=== PATIENT | female | born 1955 | race Caucasian/White ===

== ENCOUNTER → 2019-09-20 | Outpatient (CLI) | payer OTHER ==
[~2019-09-20] MED LIST: AMOXICILLIN500 MG PO; LEVOTHYROXIN0.112 MG PO; LYRICA150 MG PO; PRILOSEC20 MG PO; TORADOL10 MG PO; VICODIN ES 7501 TAB PO
== END | disposition home or self-care (01) ==
LOC: RESCLI 13:13
DX: J18.9 Pneumonia, unspecified organism (principal); B34.9 Viral infection, unspecified; G61.81 Chronic inflammatory demyelinating polyneuritis

== ENCOUNTER → 2021-03-23 | Outpatient (CLI) | payer OTHER | END | disposition home or self-care (01) | LOC: COVID19 15:31 | PROVIDERS: ATTEND Family Medicine | DX: Z11.52 Encounter for screening for COVID-19 (principal) ==

== ENCOUNTER 2023-02-06 01:53 | Emergency (ER) | payer MEDICARE ==
[~2023-02-06] VITALS: Ht 167.6 cm; Wt 99.8 kg
[2023-02-06 02:23] LABS: BASO % 0.5 % (0.0-1.0); EOS # 0.2 10*3/uL (0.0-0.4); EOS % 1.9 % (1.0-4.0); HEMATOCRIT 29.1 % (37.0-47.0); LYMPH # 1.4 10*3/uL (1.3-4.4); LYMPH % 15.7 % (27.0-41.0); MEAN CORPUSCULAR HGB 31.9 pg (27.0-31.0); MEAN CORPUSCULAR HGB CONC 31.6 g/dl (33.0-37.0); MEAN PLATELET VOLUME 9.3 fl (9.6-12.3); MONO # 0.5 10*3/uL (0.1-1.0); MONO % 5.8 % (3.0-9.0); NEUT # 6.5 10*3/uL (2.3-7.9); NEUT % 73.7 % (47.0-73.0); NUCLEATED RED BLOOD CELL 0.3 % (0.0-0.0); PLATELET COUNT AUTOMATED 328 10*3/uL (130-400); RED BLOOD COUNT 2.88 10*6/uL (4.10-5.10); RED CELL DISTRI WIDTH 16.1 % (0-14.5); WHITE BLOOD COUNT 8.8 10*3/uL (4.8-10.8)
[2023-02-06 02:44] LABS: ACT PARTIAL THROMBO TIME 24.5 SECONDS (20.0-32.1); INTERNATIONAL NORM RATIO 0.9 (2.0-3.5)
[2023-02-06 03:05] LABS: ALKALINE PHOSPHATASE 62 U/L (46-116); BUN 12 mg/dl (9-23); CHLORIDE 106 mmol/L (98-107); LIPASE 25 U/L (12-53); POTASSIUM 3.7 mmol/L (3.4-5.1); SGPT/ALT 13 U/L (10-49); TOTAL PROTEIN 5.9 gm/dL (6.0-8.0)
[2023-02-06 03:50] VITALS: BP 127/87
== END 2023-02-06 06:32 ==
LOC: ED 01:53
PROVIDERS: Internal Medicine
DX: R07.89 Other chest pain (principal); K21.9 Gastro-esophageal reflux disease without esophagitis; E03.9 Hypothyroidism, unspecified; Z86.73 Personal history of transient ischemic attack (TIA), and cerebral infarction without residual deficits

== ENCOUNTER 2023-12-25 12:14 | Emergency (ER) | payer MEDICARE, MEDICAID ==
[~2023-12-25] VITALS: Wt 125.2 kg
[2023-12-25] MEDS ORDERED: Naloxone Hydrochloride 2 MG/2 ML SYR IV ONE (12:20)
[2023-12-25 12:47] VITALS: BP 115/88
[2023-12-25] MEDS ORDERED: Midazolam Hydrochloride 2 MG/2 ML VIAL IV ONE ×2 (12:50→15:00)
[2023-12-25 12:54] LABS: BASO % 0.2 % (0.0-1.0); EOS % 0.5 % (1.0-4.0); HEMATOCRIT 28.4 % (37.0-47.0); LYMPH # 1.6 10*3/uL (1.3-4.4); MEAN CELL VOLUME 97.9 fl (81.0-99.0); MEAN CORPUSCULAR HGB 29.7 pg (27.0-31.0); MEAN CORPUSCULAR HGB CONC 30.3 g/dl (33.0-37.0); MEAN PLATELET VOLUME 12.1 fl (9.6-12.3); MONO # 0.3 10*3/uL (0.1-1.0); MONO % 4.7 % (3.0-9.0); NEUT # 4.6 10*3/uL (2.3-7.9); NEUT % 70.1 % (47.0-73.0); PLATELET COUNT AUTOMATED 51 10*3/uL (130-400); RED CELL DISTRI WIDTH 16.7 % (0-14.5); WHITE BLOOD COUNT 6.5 10*3/uL (4.8-10.8)
[2023-12-25 13:06] LABS: ACT PARTIAL THROMBO TIME 21.9 SECONDS (20.0-32.1)
[2023-12-25 13:15] LABS: ALKALINE PHOSPHATASE 66 U/L (46-116); BUN 22 mg/dl (9-23); CHLORIDE 112 mmol/L (98-107); CPK 42 U/L (34-171); ETHYL ALCOHOL < 3.0 mg/dl (<3); POTASSIUM 4.5 mmol/L (3.4-5.1); SGPT/ALT 26 U/L (5-49); TOTAL PROTEIN 5.3 gm/dL (6.0-8.0)
[2023-12-25] MEDS ORDERED: SODIUM CHLORIDE 0.9% 1,000 ML IV SCH (13:30)
[2023-12-25] MEDS ORDERED: DIAZEPAM 10 MG/2 ML SYR IV ONE (13:40)
[2023-12-25] MEDS ORDERED: AZITHROMYCIN 250 ML IV ONE (14:55)
[2023-12-25] MEDS ORDERED: Ceftriaxone Sodium 1 GM/10 ML SYR IV ONE (14:55)
[2023-12-25] MEDS ORDERED: IOHEXOL 350 MG/ML 100 ML VIAL IV ONE (15:30)
[2023-12-25] MEDS ORDERED: SODIUM CHLORIDE 0.9% 100 ML BAG IV ONE (15:30)
== END 2023-12-25 15:49 | disposition left against medical advice (07) ==
LOC: ED 12:14
PROVIDERS: Internal Medicine
DX: R40.4 Transient alteration of awareness (principal); R51.9 Headache, unspecified; R53.1 Weakness; R45.1 Restlessness and agitation; Z53.29 Procedure and treatment not carried out because of patient's decision for other reasons; Z79.899 Other long term (current) drug therapy; Z85.6 Personal history of leukemia

== ENCOUNTER 2024-04-10 04:11 | Emergency (ER) | payer MEDICARE, MEDICAID ==
[~2024-04-10] VITALS: Wt 114.9 kg
[2024-04-10] MEDS ORDERED: MOVANTIK25 MG PO (04:19)
[2024-04-10] MEDS ORDERED: HYDROCODONE BIT10 MG PO (04:20)
[2024-04-10] MEDS ORDERED: HORIZANT600 M1 PO (04:20)
[2024-04-10] MEDS ORDERED: PANTOPRAZOLE SO40 MG PO (04:21)
[2024-04-10] MEDS ORDERED: VITAMIN D325 MCG PO (04:22)
[2024-04-10] MEDS ORDERED: ZANAFLEX4 M1 PO (04:22)
[2024-04-10] MEDS ORDERED: AMLODIPINE BESY10 MG PO (04:22)
[2024-04-10] MEDS ORDERED: LIPITOR20 MG PO (04:23)
[2024-04-10] MEDS ORDERED: PREDNISONE10 MG PO (04:23)
[2024-04-10] MEDS ORDERED: Imdur SA60 MG PO (04:24)
[2024-04-10] MEDS ORDERED: ACID REDUCER10 MG PO (04:24)
[2024-04-10] MEDS ORDERED: Lasix80 MG PO (04:25)
[2024-04-10 04:26] LABS: BILIRUBIN Negative (Negative); BLOOD Negative (Negative); CLARITY Cloudy (Clear); COLOR Yellow (Yellow); GLUCOSE 2+ (Negative); KETONE Negative (Negative); LEUKO ESTERASE Negative (Negative); NITRITE Negative (Negative); PH 6.5 (4.5-8.0); UROBILINOGEN 0.2 E.U./dl (0.0-1.0)
[2024-04-10] MEDS ORDERED: K-TAB20 MEQ PO (04:26)
[2024-04-10] MEDS ORDERED: Motrin,Rufen800 MG PO (04:27)
[2024-04-10] MEDS ORDERED: DULCOLAX STOOL100 M1 PO (04:27)
[2024-04-10] MEDS ORDERED: TOPROL XL25 MG PO (04:28)
[2024-04-10] MEDS ORDERED: SENOKOT8.7 MG PO (04:29)
[2024-04-10 04:33] LABS: EPITHELIAL CELLS 0-2; WBC 0-2 wbc/hpf (0-5); YEAST 4+
[2024-04-10 04:41] LABS: URINE AMPHETAMINES Negative (1000ng/ml); URINE BARBITURATES Negative (200ng/ml); URINE BENZODIAZEPINES Negative (200ng/ml); URINE CANNABINOIDS (THC) Negative (50ng/ml); URINE COCAINE Negative (300ng/ml); URINE METHADONE Negative (300ng/ml); URINE OPIATES Positive (300ng/ml); URINE PHENCYCLIDINE Negative (25ng/ml)
[2024-04-10 06:03] LABS: ALKALINE PHOSPHATASE 121 U/L (46-116); BUN 20 mg/dl (9-23); CHLORIDE 110 mmol/L (98-107); SGPT/ALT 20 U/L (5-49); TOTAL PROTEIN 6.4 gm/dL (6.0-8.0)
[2024-04-10 06:08] LABS: ETHYL ALCOHOL < 3.0 mg/dl (<3)
[2024-04-10 06:13] LABS: BASO % 0.2 % (0.0-1.0); EOS % 0.4 % (1.0-4.0); HEMATOCRIT 39.1 % (37.0-47.0); LYMPH # 2.2 10*3/uL (1.3-4.4); LYMPH % 20.7 % (27.0-41.0); MEAN CELL VOLUME 92.2 fl (81.0-99.0); MEAN CORPUSCULAR HGB 27.4 pg (27.0-31.0); MEAN CORPUSCULAR HGB CONC 29.7 g/dl (33.0-37.0); MEAN PLATELET VOLUME 10.9 fl (9.6-12.3); MONO # 0.7 10*3/uL (0.1-1.0); NEUT # 7.4 10*3/uL (2.3-7.9); NEUT % 70.1 % (47.0-73.0); NUCLEATED RED BLOOD CELL 0.2 % (0.0-0.0); PLATELET COUNT AUTOMATED 155 10*3/uL (130-400); RED BLOOD COUNT 4.24 10*6/uL (4.10-5.10); RED CELL DISTRI WIDTH 25.1 % (0-14.5); WHITE BLOOD COUNT 10.5 10*3/uL (4.8-10.8)
[2024-04-10] MEDS ORDERED: LORazepam 2 MG/ML VIAL IV ONE (08:55)
[2024-04-10] MEDS ORDERED: Acetaminophen/Hydrocodone HP 10/325 PO ONE (10:40)
[2024-04-10] MEDS ORDERED: LORazepam 0.5 MG TAB PO ONE (10:40)
[2024-04-10] MEDS ORDERED: PREGABALIN 50 MG CAP PO ONE (10:55)
[2024-04-10] MEDS ORDERED: Ondansetron Hydrochloride 4 MG TAB SL ONE (10:55)
[2024-04-10 11:03] VITALS: BP 158/100
[2024-04-10] MEDS ORDERED: Cyclobenzaprine Hydrochlorid 10 MG TAB PO ONE (15:10)
== END 2024-04-10 15:29 | disposition home or self-care (01) ==
LOC: ED 04:11
PROVIDERS: Internal Medicine
DX: R41.82 Altered mental status, unspecified (principal); F32.A Depression, unspecified; K21.9 Gastro-esophageal reflux disease without esophagitis; E03.9 Hypothyroidism, unspecified; D64.9 Anemia, unspecified; Z86.73 Personal history of transient ischemic attack (TIA), and cerebral infarction without residual deficits; Z79.899 Other long term (current) drug therapy

== ENCOUNTER 2024-09-22 17:17 | Emergency (ER) | payer MEDICARE, MEDICAID ==
[~2024-09-22] VITALS: Wt 120.2 kg
[~2024-09-22 17:17] MED LIST changes: +ACID REDUCER10 MG PO; +AMLODIPINE BESY10 MG PO; +DULCOLAX STOOL100 M1 PO; +HORIZANT600 M1 PO; +HYDROCODONE BIT10 MG PO; +Imdur SA60 MG PO; +K-TAB20 MEQ PO; +LIPITOR20 MG PO; +Lasix80 MG PO; +MOVANTIK25 MG PO; +Motrin,Rufen800 MG PO; +PANTOPRAZOLE SO40 MG PO; +PREDNISONE10 MG PO; +SENOKOT8.7 MG PO; +TOPROL XL25 MG PO; +VITAMIN D325 MCG PO; +ZANAFLEX4 M1 PO
[2024-09-22] MEDS ORDERED: SODIUM CHLORIDE 0.9% 1,000 ML IV ONE (17:25)
[2024-09-22 17:46] LABS: HEMATOCRIT 37.3 % (37.0-47.0); MEAN CELL VOLUME 95.6 fl (81.0-99.0); MEAN CORPUSCULAR HGB 25.9 pg (27.0-31.0); MEAN CORPUSCULAR HGB CONC 27.1 g/dl (33.0-37.0); MEAN PLATELET VOLUME 10.4 fl (9.6-12.3); NUCLEATED RED BLOOD CELL 0.1 10*3/uL (0.0-0.0); PLATELET COUNT AUTOMATED 246 10*3/uL (130-400); RED CELL DISTRI WIDTH 24.9 % (0-14.5); WHITE BLOOD COUNT 13.1 10*3/uL (4.8-10.8)
[2024-09-22 17:58] LABS: ABG O2 SATURATION 64.3 % (94.0-98.0); ARTERIAL BLOOD GAS PH 7.44 (7.350-7.450)
[2024-09-22 18:00] LABS: ABG BASE EXCESS -5.8 mmol/L (-2.0-3.0); ARTERIAL BLOOD GAS PO2 33.8 mmHg (83.0-108.0)
[2024-09-22] MEDS ORDERED: ROCURONIUM BROMIDE 50 MG/5 ML SYRINGE IV ONE ×2 (18:00→21:03)
[2024-09-22] MEDS ORDERED: ACETAMINOPHEN 650 MG SUPP R ONE (18:00)
[2024-09-22] MEDS ORDERED: PROPOFOL 50 ML IV SCH (18:00)
[2024-09-22] MEDS ORDERED: ETOMIDATE 20 MG/10 ML VIAL IV ONE ×2 (18:00→21:03)
[2024-09-22] MEDS ORDERED: Vancomycin Hydrochloride 250 ML IV ONE (18:05)
[2024-09-22] MEDS ORDERED: Piperacillin Sodium/Tazobact 50 ML IV ONE (18:05)
[2024-09-22 18:07] LABS: BUN 19 mg/dl (9-23); CHLORIDE 107 mmol/L (98-107); ETHYL ALCOHOL < 3.0 mg/dl (<3); POTASSIUM 3.8 mmol/L (3.4-5.1)
[2024-09-22] MEDS ORDERED: FUROSEMIDE 40 MG/4 ML VIAL IV ONE (18:20)
[2024-09-22 18:27] LABS: MANUAL DIFF REFLEX YES
[2024-09-22 18:30] LABS: ATYPICAL LYMPHS 3 % (0-0); TOTAL CELLS COUNTED 100 #CELLS
[2024-09-22 18:31] LABS: PLATELET SUFFICIENCY NORMAL (NORMAL)
[2024-09-22 18:32] LABS: OVALOCYTES FEW
[2024-09-22] MEDS ORDERED: PROPOFOL 100 ML IV SCH (19:05)
[2024-09-22 19:28] VITALS: BP 148/77
[2024-09-22 19:33] LABS: BILIRUBIN Negative (Negative); BLOOD 3+ (Negative); CLARITY Clear (Clear); COLOR Yellow (Yellow); GLUCOSE Negative (Negative); KETONE Negative (Negative); LEUKO ESTERASE Negative (Negative); NITRITE Negative (Negative); SPECIFIC GRAVITY 1.015 (1.001-1.030); UROBILINOGEN 0.2 E.U./dl (0.0-1.0)
[2024-09-22] MEDS ORDERED: Albuterol Sulf/Ipratropium 3 ML VIAL NEB ONE ×2 (19:40→19:45)
[2024-09-22 19:48] LABS: BACTERIA 1+; MUCOUS 2+; RBC 51-100 rbc/hpf (0-2)
[2024-09-22] MEDS ORDERED: PROPOFOL 100 ML IV ONE (20:05)
== END 2024-09-22 19:53 | disposition short-term general hospital (02) ==
LOC: ED 17:17
PROVIDERS: Emergency Medicine
DX: A41.9 Sepsis, unspecified organism (principal); R65.20 Severe sepsis without septic shock; J96.00 Acute respiratory failure, unspecified whether with hypoxia or hypercapnia; J18.9 Pneumonia, unspecified organism; I10 Essential (primary) hypertension; E78.5 Hyperlipidemia, unspecified; E11.9 Type 2 diabetes mellitus without complications; Z20.822 Contact with and (suspected) exposure to COVID-19

== ENCOUNTER 2025-02-10 03:48 | Inpatient (IN) | payer MEDICARE, MEDICAID ==
[~2025-02-10] VITALS: Ht 162.5 cm; Wt 115.9 kg
[2025-02-10 04:04] VITALS: BP 115/86
[2025-02-10] MEDS ORDERED: LORazepam 2 MG/ML VIAL ONE ×2 (04:15→06:24)
[2025-02-10 04:39] LABS: BILIRUBIN Negative (Negative); BLOOD Negative (Negative); CLARITY Cloudy (Clear); COLOR Yellow (Yellow); KETONE 1+ (Negative); LEUKO ESTERASE 1+ (Negative); NITRITE Negative (Negative); PH 6.0 (4.5-8.0); SPECIFIC GRAVITY 1.025 (1.001-1.030); UROBILINOGEN 1.0 E.U./dl (0.0-1.0)
[2025-02-10 04:47] LABS: MUCOUS 3+; URINE AMPHETAMINES Negative (1000ng/ml); URINE BARBITURATES Negative (200ng/ml); URINE BENZODIAZEPINES Negative (200ng/ml); URINE CANNABINOIDS (THC) Negative (50ng/ml); URINE COCAINE Negative (300ng/ml); URINE METHADONE Negative (300ng/ml); URINE OPIATES Positive (300ng/ml); URINE PHENCYCLIDINE Negative (25ng/ml); WBC 16-20 wbc/hpf (0-5); YEAST 4+
[2025-02-10] MEDS ORDERED: SODIUM CHLORIDE 0.9% 1,000 ML IV ONE ×3 (05:25→15:15)
[2025-02-10 05:33] LABS: BUN 17 mg/dl (9-23); CPK 38 U/L (34-171); ETHYL ALCOHOL 4.3 mg/dl (<3); MYOGLOBIN 53.0 ng/ml (13-71); SGPT/ALT 44 U/L (5-49)
[2025-02-10 06:02] LABS: BASO # 0.0 10*3/uL (0.0-0.1); BASO % 0.2 % (0.0-1.0); EOS # 0.1 10*3/uL (0.0-0.4); EOS % 0.4 % (1.0-4.0); MEAN CELL VOLUME 80.1 fl (81.0-99.0); MEAN CORPUSCULAR HGB 21.1 pg (27.0-31.0); MEAN PLATELET VOLUME 10.8 fl (9.6-12.3); MONO # 1.1 10*3/uL (0.1-1.0); MONO % 8.6 % (3.0-9.0); NEUT # 8.5 10*3/uL (2.3-7.9); NEUT % 67.7 % (47.0-73.0); NUCLEATED RED BLOOD CELL 0.1 10*3/uL (0.0-0.0); NUCLEATED RED BLOOD CELL 0.7 % (0.0-0.0); PLATELET COUNT AUTOMATED 290 10*3/uL (130-400); RED CELL DISTRI WIDTH 20.7 % (0-14.5)
[2025-02-10] MEDS ORDERED: diazePAM 10 MG/2 ML SYR IV ONE ×2 (06:10→06:45)
[2025-02-10 07:21] VITALS: BP 112/80
[2025-02-10] MEDS ORDERED: Water, Sterile 10 ML VIAL ONE (08:38)
[2025-02-10] MEDS ORDERED: ACETAMINOPHEN 650 MG SUPP R ONE (10:00)
[2025-02-10 11:34] VITALS: BP 114/78
[2025-02-10] MEDS ORDERED: BISACODYL 5 MG TAB PO PRN (12:25)
[2025-02-10] MEDS ORDERED: ACETAMINOPHEN 325 MG TAB PO PRN (12:25)
[2025-02-10] MEDS ORDERED: ACETAMINOPHEN 650 MG SUPP R PRN (12:25)
[2025-02-10] MEDS ORDERED: BISACODYL 10 MG SUPP R PRN (12:25)
[2025-02-10] MEDS ORDERED: Ondansetron Hydrochloride 4 MG/2 ML VIAL IV PRN (12:25)
[2025-02-10] MEDS ORDERED: Acetaminophen/Hydrocodone 5 MG/325 MG TABLET PO PRN ×2 (12:25→22:06)
[2025-02-10 13:50] VITALS: BP 131/62
[2025-02-10 13:50] LABS: ABG BASE EXCESS -2.7 mmol/L (-2.0-3.0); ABG O2 SATURATION 95.7 % (94.0-98.0); ARTERIAL BLOOD GAS PH 7.476 (7.350-7.450); ARTERIAL BLOOD GAS PO2 81.5 mmHg (83.0-108.0)
[2025-02-10] MEDS ORDERED: SODIUM CHLORIDE 0.9% 100 ML BAG IV ONE (14:35)
[2025-02-10] MEDS ORDERED: IOHEXOL 350 MG/ML 100 ML VIAL IV ONE ×2 (14:35→17:36)
[2025-02-10 16:00] VITALS: BP 138/72
[2025-02-10] MEDS ORDERED: Pyridostigmine60 MG PO (16:48)
[2025-02-10] MEDS ORDERED: SODIUM CHLORIDE 0.9% 100 ML IV ONE (17:36)
[2025-02-10] MEDS ORDERED: Metoclopramide Hydrochloride 10 MG/2 ML VIAL IM ONE (18:45)
[2025-02-10] MEDS ORDERED: Promethazine Hydrochloride 25 MG/ML VIAL IV ONE (19:10)
[2025-02-10 19:59] VITALS: BP 145/73
[2025-02-10] MEDS ORDERED: IBUPROFEN 800 MG TAB PO PRN (22:10)
[2025-02-10] MEDS ORDERED: FAMOTIDINE 20 MG in SYRINGE INFUSION 8 ML IV ONE (23:10)
[2025-02-11] VITALS (7 sets, daily range): BP systolic 91–151; BP diastolic 53–91
[2025-02-11] MEDS ORDERED: hydrALAZINE hydrochloride 20 MG/ML VIAL IV ONE (00:25)
[2025-02-11] MEDS ORDERED: HYDROmorphONE Hydrochloride 0.5 MG/0.5 ML SYRINGE IV ONE (01:10)
[2025-02-11 06:25] LABS: BUN 12 mg/dl (9-23); FREE T4 1.32 ng/dl (0.89-1.76); LDL CHOLESTEROL 64 mg/dL (9-159); SGPT/ALT 35 U/L (5-49)
[2025-02-11 06:34] LABS: BASO # 0.0 10*3/uL (0.0-0.1); BASO % 0.3 % (0.0-1.0); EOS # 0.0 10*3/uL (0.0-0.4); EOS % 0.3 % (1.0-4.0); MEAN CELL VOLUME 81.3 fl (81.0-99.0); MEAN CORPUSCULAR HGB 21.4 pg (27.0-31.0); MEAN PLATELET VOLUME 10.9 fl (9.6-12.3); MONO # 1.3 10*3/uL (0.1-1.0); MONO % 10.8 % (3.0-9.0); NEUT # 7.6 10*3/uL (2.3-7.9); NEUT % 64.3 % (47.0-73.0); NUCLEATED RED BLOOD CELL 0.1 10*3/uL (0.0-0.0); NUCLEATED RED BLOOD CELL 0.8 % (0.0-0.0); PLATELET COUNT AUTOMATED 289 10*3/uL (130-400); RED CELL DISTRI WIDTH 20.9 % (0-14.5)
[2025-02-11] MEDS ORDERED: VANCOMYCIN HCL 1,250 MG in SODIUM CHLORIDE 0.9% 250 ML IV SCH (08:00)
[2025-02-11] MEDS ORDERED: FAMOTIDINE 20 MG/2 ML VIAL IV ONE (09:08)
[2025-02-11] MEDS ORDERED: SODIUM CHLORIDE 0.9% 50 ML BAG IV ONE (09:08)
[2025-02-11] MEDS ORDERED: Vitamin D 1,000 IU TAB (25 MCG) PO SCH (10:00)
[2025-02-11] MEDS ORDERED: FAMOTIDINE 10 MG TAB PO SCH (10:00)
[2025-02-11] MEDS ORDERED: POTASSIUM CHLORIDE 20 MEQ TAB PO SCH (10:00)
[2025-02-11] MEDS ORDERED: METOPROLOL SUCCINATE XR 25 MG TAB PO SCH (10:00)
[2025-02-11] MEDS ORDERED: ISOSORBIDE MONONITRATE 60 MG TAB PO SCH (10:00)
[2025-02-11] MEDS ORDERED: ATORVASTATIN CALCIUM 20 MG TAB PO SCH (10:00)
[2025-02-11] MEDS ORDERED: NALOXEGOL 25 MG PO SCH (10:00)
[2025-02-11] MEDS ORDERED: FUROSEMIDE 40 MG TAB PO SCH (10:00)
[2025-02-11] MEDS ORDERED: diazePAM 10 MG/2 ML SYR IV ONE ×2 (12:40→17:00)
[2025-02-11] MEDS ORDERED: PROMETHAZINE HYDROCHLORIDE IV ONE (12:50)
[2025-02-11] MEDS ORDERED: Promethazine Hydrochloride 25 MG/ML VIAL IV ONE (12:55)
[2025-02-11] MEDS ORDERED: APIXABAN 5 MG TAB PO SCH (18:00)
[2025-02-11] MEDS ORDERED: GABAPENTIN 300 MG CAP PO SCH (22:00)
[2025-02-11] MEDS ORDERED: VANCOMYCIN HCL 125 MG CAPSULE PO SCH (22:00)
[2025-02-12] VITALS (13 sets, daily range): BP systolic 80–112; BP diastolic 40–66
[2025-02-12 06:35] LABS: MEAN CELL VOLUME 79.6 fl (81.0-99.0); MEAN CORPUSCULAR HGB 21.3 pg (27.0-31.0); MEAN PLATELET VOLUME 11.1 fl (9.6-12.3); NUCLEATED RED BLOOD CELL 0.1 10*3/uL (0.0-0.0); NUCLEATED RED BLOOD CELL 1.2 % (0.0-0.0); PLATELET COUNT AUTOMATED 230 10*3/uL (130-400); RED CELL DISTRI WIDTH 20.7 % (0-14.5)
[2025-02-12 06:38] LABS: MANUAL DIFF REFLEX YES
[2025-02-12 07:17] LABS: PLATELET SUFFICIENCY NORMAL (NORMAL)
[2025-02-12 07:40] LABS: BUN 9 mg/dl (9-23); SGPT/ALT 29 U/L (5-49)
[2025-02-12] MEDS ORDERED: SODIUM CHLORIDE 0.9% 500 ML IV ONE (09:35)
[2025-02-12] MEDS ORDERED: ALBUMIN 5% 250 ML IV SCH (10:00)
[2025-02-12] MEDS ORDERED: predniSONE 10 MG TAB PO SCH (10:00)
[2025-02-12 13:46] LABS: BASO # 0.0 10*3/uL (0.0-0.1); BASO % 0.2 % (0.0-1.0); EOS # 0.0 10*3/uL (0.0-0.4); EOS % 0.2 % (1.0-4.0); MEAN CELL VOLUME 81.8 fl (81.0-99.0); MEAN CORPUSCULAR HGB 22.8 pg (27.0-31.0); MEAN PLATELET VOLUME 10.4 fl (9.6-12.3); MONO # 0.3 10*3/uL (0.1-1.0); MONO % 4.6 % (3.0-9.0); NEUT # 4.9 10*3/uL (2.3-7.9); NEUT % 83.0 % (47.0-73.0); NUCLEATED RED BLOOD CELL 0.0 10*3/uL (0.0-0.0); NUCLEATED RED BLOOD CELL 0.5 % (0.0-0.0); PLATELET COUNT AUTOMATED 205 10*3/uL (130-400); RED CELL DISTRI WIDTH 21.2 % (0-14.5)
[2025-02-12] MEDS ORDERED: diazePAM 10 MG/2 ML SYR IV PRN (21:20)
[2025-02-12] MEDS ORDERED: diazePAM 10 MG/2 ML SYR IV ONE (21:50)
[2025-02-13] VITALS (14 sets, daily range): BP systolic 92–144; BP diastolic 33–85
[2025-02-13] MEDS ORDERED: FOAM BANDAGE HEEL T ONE (00:17)
[2025-02-13 05:59] LABS: MEAN CELL VOLUME 81.4 fl (81.0-99.0); MEAN CORPUSCULAR HGB 22.1 pg (27.0-31.0); MEAN PLATELET VOLUME 10.4 fl (9.6-12.3); NUCLEATED RED BLOOD CELL 0.0 10*3/uL (0.0-0.0); NUCLEATED RED BLOOD CELL 0.9 % (0.0-0.0); PLATELET COUNT AUTOMATED 187 10*3/uL (130-400); RED CELL DISTRI WIDTH 21.2 % (0-14.5)
[2025-02-13 06:12] LABS: BUN 10 mg/dl (9-23); SGPT/ALT 23 U/L (5-49)
[2025-02-13 06:18] LABS: MANUAL DIFF REFLEX YES
[2025-02-13] MEDS ORDERED: POTASSIUM CHLORIDE 20 MEQ TAB PO ONE (06:40)
[2025-02-13 06:48] LABS: PLATELET SUFFICIENCY NORMAL (NORMAL)
[2025-02-13 07:22] LABS: RETICULOCYTE % 2.45 % (0.50-2.50)
[2025-02-13] MEDS ORDERED: SODIUM CHLORIDE 0.9% 500 ML IV SCH (10:35)
[2025-02-13] MEDS ORDERED: SODIUM CHLORIDE 0.9% 500 ML IV ONE (10:43)
[2025-02-13 17:19] LABS: BASO # 0.0 10*3/uL (0.0-0.1); BASO % 0.2 % (0.0-1.0); EOS # 0.0 10*3/uL (0.0-0.4); EOS % 0.2 % (1.0-4.0); MEAN CELL VOLUME 84.2 fl (81.0-99.0); MEAN CORPUSCULAR HGB 23.3 pg (27.0-31.0); MEAN PLATELET VOLUME 10.8 fl (9.6-12.3); MONO # 0.2 10*3/uL (0.1-1.0); MONO % 3.4 % (3.0-9.0); NEUT # 4.9 10*3/uL (2.3-7.9); NEUT % 82.1 % (47.0-73.0); NUCLEATED RED BLOOD CELL 0.1 10*3/uL (0.0-0.0); NUCLEATED RED BLOOD CELL 1.0 % (0.0-0.0); PLATELET COUNT AUTOMATED 206 10*3/uL (130-400); RED CELL DISTRI WIDTH 20.5 % (0-14.5)
[2025-02-13] MEDS ORDERED: diazePAM 10 MG/2 ML SYR IV ONE (21:10)
[2025-02-14] VITALS: BP 136/84
[2025-02-14] MEDS ORDERED: diazePAM 10 MG/2 ML SYR IV ONE ×2 (01:40→02:45)
[2025-02-14 08:00] VITALS: BP 106/61
[2025-02-14] MEDS ORDERED: predniSONE 10 MG TAB PO SCH (08:00)
[2025-02-14 12:00] VITALS: BP 118/88
[2025-02-14] MEDS ORDERED: OLANZapine 10 MG VIAL IM PRN (12:10)
[2025-02-14] MEDS ORDERED: risperiDONE 0.25 MG TAB PO SCH (12:10)
[2025-02-14] MEDS ORDERED: Water, Sterile 10 ML VIAL IM PRN (12:15)
[2025-02-14] MEDS ORDERED: POTASSIUM CHLORIDE 20 MEQ TAB PO ONE (14:45)
[2025-02-14 16:00] VITALS: BP 101/67
[2025-02-14 17:40] LABS: BUN 9 mg/dl (9-23); SGPT/ALT 25 U/L (5-49)
[2025-02-14 20:00] VITALS: BP 107/57
[2025-02-15] VITALS: BP 100/52
[2025-02-15 04:00] VITALS: BP 117/52
[2025-02-15 05:26] LABS: BUN 11 mg/dl (9-23); SGPT/ALT 23 U/L (5-49)
[2025-02-15 06:09] LABS: BASO # 0.0 10*3/uL (0.0-0.1); BASO % 0.2 % (0.0-1.0); EOS # 0.0 10*3/uL (0.0-0.4); EOS % 0.2 % (1.0-4.0); MEAN CELL VOLUME 83.2 fl (81.0-99.0); MEAN CORPUSCULAR HGB 23.4 pg (27.0-31.0); MEAN PLATELET VOLUME 10.8 fl (9.6-12.3); MONO # 0.4 10*3/uL (0.1-1.0); MONO % 7.0 % (3.0-9.0); NEUT # 4.0 10*3/uL (2.3-7.9); NEUT % 68.7 % (47.0-73.0); NUCLEATED RED BLOOD CELL 0.0 % (0.0-0.0); NUCLEATED RED BLOOD CELL 0.0 10*3/uL (0.0-0.0); PLATELET COUNT AUTOMATED 201 10*3/uL (130-400); RED CELL DISTRI WIDTH 21.2 % (0-14.5)
[2025-02-15] MEDS ORDERED: POTASSIUM CHLORIDE 20 MEQ TAB PO ONE (07:15)
[2025-02-15 08:00] VITALS: BP 109/64
[2025-02-15] MEDS ORDERED: FERROUS SULFATE 50 MG PO SCH (10:00)
[2025-02-15] MEDS ORDERED: FOAM BANDAGE 5X5 T ONE (10:05)
[2025-02-15] MEDS ORDERED: FOAM BANDAGE HEEL T ONE (10:06)
[2025-02-15 12:00] VITALS: BP 150/52
[2025-02-15] MEDS ORDERED: DEXTROSE 50% 25 GM/50 ML VIAL IV PRN (12:30)
[2025-02-15] MEDS ORDERED: GABAPENTIN 400 MG CAP PO SCH (14:00)
[2025-02-15 16:00] VITALS: BP 115/58
[2025-02-15] MEDS ORDERED: INSULIN LISPRO 1 UNIT/0.01 ML SQ SCH (16:30)
[2025-02-15 20:00] VITALS: BP 126/72
[2025-02-16] VITALS: BP 125/68
[2025-02-16 04:00] VITALS: BP 146/91
[2025-02-16 06:25] LABS: BASO # 0.0 10*3/uL (0.0-0.1); BASO % 0.1 % (0.0-1.0); EOS # 0.0 10*3/uL (0.0-0.4); EOS % 0.1 % (1.0-4.0); MEAN CELL VOLUME 80.8 fl (81.0-99.0); MEAN CORPUSCULAR HGB 23.3 pg (27.0-31.0); MEAN PLATELET VOLUME 10.3 fl (9.6-12.3); MONO # 0.6 10*3/uL (0.1-1.0); MONO % 8.1 % (3.0-9.0); NEUT # 5.3 10*3/uL (2.3-7.9); NEUT % 74.1 % (47.0-73.0); NUCLEATED RED BLOOD CELL 0.0 % (0.0-0.0); NUCLEATED RED BLOOD CELL 0.0 10*3/uL (0.0-0.0); PLATELET COUNT AUTOMATED 202 10*3/uL (130-400); RED CELL DISTRI WIDTH 21.2 % (0-14.5)
[2025-02-16 07:28] LABS: BUN 15 mg/dl (9-23)
[2025-02-16 08:00] VITALS: BP 110/58
[2025-02-16] MEDS ORDERED: POTASSIUM CHLORIDE 20 MEQ TAB PO ONE ×2 (08:10)
[2025-02-16] MEDS ORDERED: risperiDONE 0.5 MG TAB PO SCH (10:00)
[2025-02-16 12:00] VITALS: BP 128/81
[2025-02-16 16:00] VITALS: BP 107/71
[2025-02-16 20:00] VITALS: BP 118/80
[2025-02-17 07:49] LABS: BASO # 0.0 10*3/uL (0.0-0.1); BASO % 0.1 % (0.0-1.0); EOS # 0.0 10*3/uL (0.0-0.4); EOS % 0.4 % (1.0-4.0); MEAN CELL VOLUME 81.4 fl (81.0-99.0); MEAN CORPUSCULAR HGB 23.4 pg (27.0-31.0); MEAN PLATELET VOLUME 9.6 fl (9.6-12.3); MONO # 0.6 10*3/uL (0.1-1.0); MONO % 7.6 % (3.0-9.0); NEUT # 5.9 10*3/uL (2.3-7.9); NEUT % 72.3 % (47.0-73.0); NUCLEATED RED BLOOD CELL 0.0 % (0.0-0.0); NUCLEATED RED BLOOD CELL 0.0 10*3/uL (0.0-0.0); PLATELET COUNT AUTOMATED 210 10*3/uL (130-400); RED CELL DISTRI WIDTH 21.3 % (0-14.5)
[2025-02-17 08:00] VITALS: BP 95/71
[2025-02-17 08:07] LABS: BUN 19 mg/dl (9-23)
[2025-02-17] MEDS ORDERED: POTASSIUM CHLORIDE 20 MEQ TAB PO ONE (08:30)
[2025-02-17] MEDS ORDERED: POTASSIUM CHLORIDE 10 MEQ TAB PO SCH (10:00)
[2025-02-17] MEDS ORDERED: POTASSIUM CHLORIDE 20 MEQ TAB PO SCH (10:00)
[2025-02-17] MEDS ORDERED: RISPERIDONE0.5 MG PO (12:23)
[2025-02-17] MEDS ORDERED: VANCOMYCIN HCL125 MG PO (12:23)
== END 2025-02-17 13:05 | disposition home or self-care (01) | DRG 871 ==
LOC: ED 03:48 → EDHOLD 11:05 → ICCU 11:05
PROVIDERS: Emergency Medicine; Family Medicine; Student in an Organized Health Care Education/Training Program; ADMIT Student in an Organized Health Care Education/Training Program; ATTEND Student in an Organized Health Care Education/Training Program
PROC: 05HB33Z Insertion of Infusion Device into Right Basilic Vein, Percutaneous Approach (ICD-10-PCS; 2025-02-10)
PROC: B54MZZA Ultrasonography of Right Upper Extremity Veins, Guidance (ICD-10-PCS; 2025-02-10)
PROC: 30233N1 Transfusion of Nonautologous Red Blood Cells into Peripheral Vein, Percutaneous Approach (ICD-10-PCS; principal; 2025-02-12)
DX: A41.9 Sepsis, unspecified organism (principal); E43 Unspecified severe protein-calorie malnutrition; G93.41 Metabolic encephalopathy; N39.0 Urinary tract infection, site not specified; E87.20 Acidosis, unspecified; G82.20 Paraplegia, unspecified; A04.72 Enterocolitis due to Clostridium difficile, not specified as recurrent; F23 Brief psychotic disorder; E87.3 Alkalosis; L03.116 Cellulitis of left lower limb; L03.115 Cellulitis of right lower limb; F05 Delirium due to known physiological condition; I82.411 Acute embolism and thrombosis of right femoral vein; Z68.41 Body mass index [BMI] 40.0-44.9, adult; E87.6 Hypokalemia; E03.9 Hypothyroidism, unspecified; G70.00 Myasthenia gravis without (acute) exacerbation; E78.00 Pure hypercholesterolemia, unspecified; R65.20 Severe sepsis without septic shock; D50.9 Iron deficiency anemia, unspecified; R74.01 Elevation of levels of liver transaminase levels; F10.10 Alcohol abuse, uncomplicated; S51.812A Laceration without foreign body of left forearm, initial encounter; S51.811A Laceration without foreign body of right forearm, initial encounter; F31.9 Bipolar disorder, unspecified; E11.65 Type 2 diabetes mellitus with hyperglycemia; Z88.1 Allergy status to other antibiotic agents; Z88.8 Allergy status to other drugs, medicaments and biological substances; Z91.048 Other nonmedicinal substance allergy status; Z91.09 Other allergy status, other than to drugs and biological substances; Z79.899 Other long term (current) drug therapy; Z86.39 Personal history of other endocrine, nutritional and metabolic disease; Z79.01 Long term (current) use of anticoagulants; Z79.2 Long term (current) use of antibiotics; Z93.3 Colostomy status; X58.XXXA Exposure to other specified factors, initial encounter; Y93.89 Activity, other specified; Y92.89 Other specified places as the place of occurrence of the external cause; Y99.8 Other external cause status; Y90.0 Blood alcohol level of less than 20 mg/100 ml

== ENCOUNTER 2025-03-16 22:26 | Emergency (ER) | payer MEDICARE, MEDICAID ==
[~2025-03-16] VITALS: Ht 162.5 cm; Wt 117.9 kg
[~2025-03-16 22:26] MED LIST changes: +Pyridostigmine60 MG PO; +RISPERIDONE0.5 MG PO; +VANCOMYCIN HCL125 MG PO
[2025-03-16 22:58] VITALS: BP 91/56
[2025-03-16 23:38] LABS: BASO # 0.0 10*3/uL (0.0-0.1); BASO % 0.3 % (0.0-1.0); EOS # 0.0 10*3/uL (0.0-0.4); EOS % 0.3 % (1.0-4.0); MEAN CELL VOLUME 86.3 fl (81.0-99.0); MEAN CORPUSCULAR HGB 23.9 pg (27.0-31.0); MEAN PLATELET VOLUME 10.3 fl (9.6-12.3); MONO # 0.4 10*3/uL (0.1-1.0); MONO % 4.9 % (3.0-9.0); NEUT # 5.6 10*3/uL (2.3-7.9); NEUT % 74.2 % (47.0-73.0); NUCLEATED RED BLOOD CELL 0.0 % (0.0-0.0); NUCLEATED RED BLOOD CELL 0.0 10*3/uL (0.0-0.0); PLATELET COUNT AUTOMATED 227 10*3/uL (130-400); RED CELL DISTRI WIDTH 22.7 % (0-14.5)
[2025-03-16 23:48] LABS: BILIRUBIN Negative (Negative); BLOOD Negative (Negative); CLARITY Cloudy (Clear); COLOR Yellow (Yellow); KETONE Trace (Negative); LEUKO ESTERASE 1+ (Negative); NITRITE Negative (Negative); PH 5.5 (4.5-8.0); SPECIFIC GRAVITY 1.020 (1.001-1.030); UROBILINOGEN 1.0 E.U./dl (0.0-1.0)
[2025-03-17 00:02] LABS: BUN 20 mg/dl (9-23); SGPT/ALT 27 U/L (5-49)
[2025-03-17] MEDS ORDERED: SODIUM CHLORIDE 0.9% 1,000 ML IV ONE (00:40)
[2025-03-17 00:50] LABS: WBC 16-20 wbc/hpf (0-5); YEAST 4+
[2025-03-17] MEDS ORDERED: FLUCONAZOLE 100 MG TAB PO ONE (01:00)
[2025-03-17 01:12] VITALS: BP 95/55
[2025-03-17] MEDS ORDERED: Ondansetron Hydrochloride 4 MG/2 ML VIAL IV PRN (02:15)
[2025-03-17] MEDS ORDERED: BISACODYL 10 MG SUPP R PRN (02:15)
[2025-03-17] MEDS ORDERED: DEXTROSE 50% 25 GM/50 ML VIAL IV PRN (02:15)
[2025-03-17] MEDS ORDERED: Acetaminophen/Hydrocodone 5 MG/325 MG TABLET PO PRN (02:15)
[2025-03-17] MEDS ORDERED: BISACODYL 5 MG TAB PO PRN (02:15)
[2025-03-17] MEDS ORDERED: ACETAMINOPHEN 650 MG SUPP R PRN (02:15)
[2025-03-17] MEDS ORDERED: ACETAMINOPHEN 325 MG TAB PO PRN (02:15)
[2025-03-17] MEDS ORDERED: SODIUM CHLORIDE 0.9% 1,000 ML IV SCH (02:20)
[2025-03-17 03:18] VITALS: BP 90/51
[2025-03-17 04:09] VITALS: BP 103/63
[2025-03-17 04:11] LABS: BASO # 0.0 10*3/uL (0.0-0.1); BASO % 0.3 % (0.0-1.0); EOS # 0.0 10*3/uL (0.0-0.4); EOS % 0.3 % (1.0-4.0); MEAN CELL VOLUME 86.2 fl (81.0-99.0); MEAN CORPUSCULAR HGB 24.1 pg (27.0-31.0); MEAN PLATELET VOLUME 10.5 fl (9.6-12.3); MONO # 0.6 10*3/uL (0.1-1.0); MONO % 8.2 % (3.0-9.0); NEUT # 4.7 10*3/uL (2.3-7.9); NEUT % 64.6 % (47.0-73.0); NUCLEATED RED BLOOD CELL 0.0 % (0.0-0.0); NUCLEATED RED BLOOD CELL 0.0 10*3/uL (0.0-0.0); PLATELET COUNT AUTOMATED 194 10*3/uL (130-400); RED CELL DISTRI WIDTH 22.8 % (0-14.5)
[2025-03-17 04:34] LABS: BUN 22 mg/dl (9-23); SGPT/ALT 23 U/L (5-49)
[2025-03-17 06:33] VITALS: BP 110/54
[2025-03-17 07:25] VITALS: BP 103/65
[2025-03-17] MEDS ORDERED: INSULIN LISPRO 1 UNIT/0.01 ML SQ SCH (07:30)
== END 2025-03-17 09:48 | disposition admitted as inpatient to this hospital (09) ==
LOC: ED 22:26 → EDHOLD 03-17 01:47
PROVIDERS: Internal Medicine; Student in an Organized Health Care Education/Training Program
DX: N39.0 Urinary tract infection, site not specified (principal); E44.1 Mild protein-calorie malnutrition; E87.20 Acidosis, unspecified; N32.0 Bladder-neck obstruction; I95.9 Hypotension, unspecified; G70.00 Myasthenia gravis without (acute) exacerbation; E78.00 Pure hypercholesterolemia, unspecified; N20.0 Calculus of kidney; D53.9 Nutritional anemia, unspecified; K21.9 Gastro-esophageal reflux disease without esophagitis; R73.9 Hyperglycemia, unspecified; Z88.1 Allergy status to other antibiotic agents; Z88.8 Allergy status to other drugs, medicaments and biological substances